=== PATIENT | female | born 1950 ===

== ENCOUNTER 2020-01-26 06:00 | Day surgery (SDC) | payer OTHER ==
[~2020-01-26] VITALS: Ht 157.5 cm; Wt 47.6 kg
[~2020-01-26 06:00] MED LIST: FLUDROCORTISON0.1 MG PO; HYDROCHLOROTH12.5 M1 PO; LEVOTHYROXINE25 MCG PO; LIPITOR20 MG PO; PROLIA60 MG/1 ML; [UNRECOGNIZED DRUG - SUPPLY] PO
[2020-01-27] MEDS ORDERED: PERCOCET 5-3251 EACH PO (08:38)
[2020-01-27] MEDS ORDERED: ROCALTROL0.25 MCG PO (08:38)
[2020-01-27] MEDS ORDERED: SYNTHROID75 MCG PO (08:45)
== END 2020-01-27 08:00 | disposition home or self-care (01) ==
LOC: CIR.AMB 06:00 → O/R 10:00 → EDSTATUS 10:00 → CIR.AMB 10:00 → SURH 10:11 → O/R 10:11 → SURH 10:21 → CIR.AMB 01-27 08:00 → SURH 01-27 09:37
DX: C73 Malignant neoplasm of thyroid gland (principal)